=== PATIENT | female | born 1970 | race Caucasian/White ===

== ENCOUNTER 2019-01-19 19:41 | Emergency (ER) | payer MEDICAID ==
[~2019-01-19] VITALS: Ht 160 cm; Wt 75.7 kg
[2019-01-19 19:44] VITALS: Ht 160 cm; Wt 75.7 kg
[2019-01-19 21:49] LABS: BASOPHIL % 0.4 % (0-2); PLATELET COUNT 211 x10^3mcL (130-400)
[2019-01-19 22:15] LABS: CALCIUM 8.6 mg/dL (8.5-10.1); CARBON DIOXIDE 21.4 mmol/L (21-32); CHLORIDE SERUM 99 mmol/L (98-107); CREATININE SERUM 0.8 mg/dL (0.6-1.0); GFR1 > 60 mL/min; GLUCOSE SERUM 129 mg/dL (74-106); SODIUM SERUM 135 mmol/L (136-145)
[2019-01-19 22:16] LABS: POTASSIUM SERUM 2.8 mmol/L (3.5-5.1)
[2019-01-19 23:15] VITALS: BP 117/76
== END 2019-01-19 23:15 | disposition home or self-care (01) ==
LOC: ED 19:41
PROVIDERS: Emergency Medicine
DX: N12 Tubulo-interstitial nephritis, not specified as acute or chronic (principal); E87.6 Hypokalemia; R51 Headache
CPT/HCPCS: J0696; J1885; J7030